=== PATIENT | female | born 1980 | race African-American/Black ===

== ENCOUNTER 2020-03-18 07:30 | Inpatient (IN) | payer OTHER ==
--- NOTE | 2020-03-18 08:14 | HP ---
Past Medical History - Primary Care Physician PCP:: Lee Ann Arellano - Admission Chief Complaint: 39 yrs , 40 .6 wks by dates & 40 wks by us admitted for induction of labor as per recommendations by MFM History of Present Illness: pnc at [address] [place] [address] panel 08/08/19 : gc/ct neg, O Pos, Hbsag neg, hep c nr, rubella immune varicella immune, sickle neg , hiv neg m varicellapos 05/23/19 quantifron neg 12/12/19 : 1 hr Gtt 85, hiv nr, hep c nr m Tpallidum ab neg . 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's, CVA, Dementia, Migraine, Multiple Sclerosis, Peripheral Neuropathy, Parkinson's, Seizure, Syncope, TIA, Vertigo, Other Cardiovascular: No: AFIB, Aneurysm, Aortic Insufficiency, Aortic Stenosis, CAD, CHF, Deep Vein Thrombosis, HTN, Hyperlipdemia, CO, Mitral Insufficiency, Mitral Stenosis, Murmur, Pulmonary Hypertension, Other Pulmonary: No: Asthma, Bronchitis, Cancer, COPD, O2 Dependent, Pneumonia, Previously Intubated, Pulmonary Embolus, Pulmonary Fibrosis, Sleep Apnea, Other Gastrointestinal: No: Ascites, Cancer, Constipation, Crohn's Disease, Diverticulitis, Diverticulosis, Esophageal Varices, Gastritis, GERD, GI Bleed, Hemorrhoids, Hiatal Hernia, Inflamatory Bowel Disease, Irritable Bowel Disease, Pancreatitis, Peptic Ulcer Disease, Ulcerative Colitis, Other Hepatobiliary: No: Hepatitis B, Hepatitis C Renal/: No: UTI Reproductive: Yes: Other (h/o fibroids pap in 2018 normal as per pt) ...: 1 ...Para: 0 ...LMP: 06/06/19 ... Weeks Gestation by Dates: 40.6 ...EDC by Dates: 03/12/20 ...EDC by Sono: 03/18/20 (40 wks by us ) Heme/Onc: Yes: Anemia (rx po iron & pnv) Infectious Disease: No: AIDS, C-Diff, Herpes Zoster, HIV, MRSA, STD's, Tuberculosis, VREF, Other Psych: No: Addictions, Anxiety, Bipolar, Depression, Panic, Psychosis, Schizophrenia, Other Endocrine: No: [place]'s Disease, Jack's Disease, Diabetes Insipidus, Diabetes Mellitus, Hyperparathyroidism, Hyperthyroidism, Hypothyroidism, Osteopenia, SIADH, Other - Past Surgical History Past Surgical History: Yes: None Hx Myomectomy: No Hx Transabdominal Cerclage: No - Smoking History Have you smoked in the past 12 months: No - Alcohol/Substance Use Hx Alcohol Use: No History of Substance Use: reports: None Home Medications - Allergies Allergies/Adverse Reactions: Allergies Allergy/AdvReac Type Severity Reaction Status Date / Time No Known Allergies Allergy Verified 03/18/20 08:07 - Home Medications Home Medications: Ambulatory Orders Ferrous Sulfate [Iron] 1 tab PO DAILY 03/18/20 Vitamins (Sjr) - 1 tab PO DAILY 03/18/20 Review of Systems - Review of Systems Constitutional: reports: No Symptoms Eyes: reports: No Symptoms HENT: reports: No Symptoms Neck: reports: No Symptoms Cardiovascular: reports: No Symptoms Respiratory: reports: No Symptoms Gastrointestinal: reports: No Symptoms Genitourinary: reports: No Symptoms Breasts: reports: No Symptoms Reported Musculoskeletal: reports: No Symptoms Integumentary: reports: No Symptoms Neurological: reports: No Symptoms Endocrine: reports: No Symptoms Psychiatric: reports: No Symptoms Physical Exam - Maternity Vital Signs: Selected Entries 03/18/20 09:30 Temperature 97.8 F Pulse Rate 107 H Blood Pressure 135/80 Weight 210 lb Constitutional: Yes: Well Nourished, Obese Eyes: Yes: WNL HENT: Yes: WNL Neck: Yes: WNL Cardiovascular: Yes: WNL Lungs: Clear to auscultation Breast(s): Yes: WNL - Abdominal Exam/OB Fundal Height: 38 Number of Fetuses: Single Presentation: Vertex Contractions: No Monitor Mode: External Heart Rate (range): 145 Heart Rate Location: [facility] Category: I Accelerations: Uniform Decelerations: None - Vaginal Exam/OB Vaginal Bleeding: No Speculum Exam: No Dilatation (cm): FT Effacement (%): 50 Amniotic Membrane Status: Intact Presentation: Vertex/Position Station: -3 - Physical Exam Musculoskeletal: Yes: WNL Extremities: Yes: WNL. No: Calf Tenderness Edema: LLE: Trace, RLE: Trace Integumentary: Yes: WNL. No: Incision Deep Tendon Reflex Grade: Normal +2 ...Motor Strength: WNL Psychiatric: Yes: WNL - Labs Lab Results: Laboratory Tests 03/15/20 03/18/20 03/18/20 13:40 09:55 09:55 WBC 6.5 Hgb 11.5 Hct 35.6 Plt Count 161 Neutrophils % 63.7 Lymphocytes % 25.9 Monocytes % 9.7 Eosinophils % 0.4 PT with INR 11.00 INR 0.93 PTT (Actin FS) 25.8 Sodium Potassium Chloride Carbon Dioxide BUN Creatinine Random Glucose Syphilis Serology COVID-19 (ESSENCE) Not detected Blood Type Antibody Screen 03/18/20 03/18/20 03/18/20 09:55 09:55 09:55 WBC Hgb Hct Plt Count Neutrophils % Lymphocytes % Monocytes % Eosinophils % PT with INR INR PTT (Actin FS) Sodium 136 Potassium 4.4 Chloride 106 Carbon Dioxide 25 BUN 13.4 Creatinine 0.8 Random Glucose 78 Syphilis Serology Non-reactive COVID-19 (ESSENCE) Blood Type O POSITIVE Antibody Screen Negative Problem List - Problems (1) 40 weeks gestation of Code(s): Z3A.40 - 40 WEEKS GESTATION OF (2) Elective induction of labor planned Code(s): GSE1798 - (3) Positive GBS test Code(s): B95.1 - STREPTOCOCCUS, GROUP B, CAUSING DISEASES CLASSD ELSWHR (4) AMA (advanced maternal age) primigravida 35+ Code(s): O09.519 - SUPERVISION OF ELDERLY PRIMIGRAVIDA, UNSPECIFIED TRIMESTER Qualifiers: Trimester: third trimester Qualified Code(s): O09.513 - Supervision of elderly primigravida, third trimester Assessment/Plan 39 yrs 40 wks by sono 40.6 wks by dateds , GBS pos plan cervidil induction of labor gbs prpphylaxis with ampicillin . stadol + phenrgan labor analgesia & or epidural vag del trial
[2020-03-18] MEDS ORDERED: PROMETHAZINE HCL 25 MG/1 ML VIAL IVPB ONE (08:21)
[2020-03-18] MEDS ORDERED: BUTORPHANOL TARTRATE 1 MG/ML VIAL IVPB ONE (08:21)
[2020-03-18] MEDS ORDERED: DINOPROSTONE 10 MG VAGINAL SUPPOSITORY VG ONE (08:23)
[2020-03-18] MEDS ORDERED: SODIUM PHOSPHATE/NA BIPHOS 133 ML ENEMA PR ONE (08:23)
[2020-03-18] MEDS ORDERED: AMPICILLIN - 2 GM in SODIUM CHLORIDE 100 ML IVPB ONE (08:25)
[2020-03-18 09:39] VITALS: BMI 38.4
[2020-03-18 11:01] LABS: BASO % 0.3 % (0-2.0); EOS % 0.4 % (0-4.5); HEMATOCRIT 35.6 % (32.4-45.2); HEMOGLOBIN 11.5 GM/dL (10.7-15.3); LYMPH % 25.9 % (8-40); MCH 24.4 pg (25.7-33.7); MCHC 32.2 g/dl (32.0-36.0); MEAN CELL VOLUME 75.8 fl (80-96); MEAN PLT VOLUME 9.6 fl (7.5-11.1); MONO % 9.7 % (3.8-10.2); NEUT % 63.7 % (42.8-82.8); PLATELET COUNT 161 K/MM3 (134-434); RDW 17.7 % (11.6-15.6); WHITE BLOOD COUNT 6.5 K/mm3 (4.0-10.0)
[2020-03-18 11:22] LABS: BLOOD UREA NITROGEN 13.4 mg/dL (7-18); CREATININE 0.8 mg/dL (0.55-1.3); POTASSIUM 4.4 mmol/L (3.5-5.1)
[2020-03-18 11:36] LABS: INR 0.93 (0.83-1.09)
[2020-03-18 11:39] LABS: ACTIVATED PTT 25.8 SECONDS (25.2-36.5)
[2020-03-18] MEDS ORDERED: AMPICILLIN - 1 GM in SODIUM CHLORIDE 100 ML IVPB SCH (12:25)
[2020-03-18] MEDS: DEXTROSE 5%-LACTATED RINGERS 1,000 ML IV SCH (16:05)
--- NOTE | 2020-03-18 20:49 | PN ---
Progress Note (short form) - Note Progress Note: 8.30 PM cervidil removed fhr 150 bpm cat-1 no uc noted pt does not feel any cramping v/s stable pelvic exam : cx post ,int os FT, , 50 % , vx -3 . previous montoring strip reviewed , 25 mcg q 4hr x 4doses Selected Entries 03/18/20 16:00 Temperature 97.9 F Pulse Rate 76 Blood Pressure 126/73 Plan discuss options of cytotec or repeat cervidil pt will take shower Po cytotec protocol gbs protocol when UC are regular Problem List - Problems (1) 40 weeks gestation of Code(s): Z3A.40 - 40 WEEKS GESTATION OF (2) Elective induction of labor planned Code(s): [id number] - (3) Positive GBS test Code(s): B95.1 - STREPTOCOCCUS, GROUP B, CAUSING DISEASES CLASSD ELSWHR
[2020-03-18] MEDS: MISOPROSTOL 25 MCG TABLET (COMPOUNDED BY PHARMACY) PO SCH (23:00)
[2020-03-19] MEDS: MISOPROSTOL 25 MCG TABLET (COMPOUNDED BY PHARMACY) PO SCH ×3 (03:15→14:44)
[2020-03-19] MEDS ORDERED: AMPICILLIN SODIUM 2 GM VIAL ONE (06:45)
--- NOTE | 2020-03-19 07:18 | PN ---
Progress Note (short form) - Note Progress Note: cx int os ft/post cx/soft/ext os 2cm/vx-3 UC 5-7 min irregular, mild FHr 130 cat-1 pt got 3rd dose of Cytotec at 7.00AM Selected Entries 03/19/20 06:00 Temperature 98.7 F Pulse Rate 54 L Blood Pressure 134/69 pt is given option of delivery by primary c/section since not much change in cx is noted . plan : she prefers to complete 4 doses of cytotec, & continue trial of vag del Iv Ampiciilin 1st dose started at 7.00AM. po clear liqiuds only Problem List - Problems (1) 40 weeks gestation of Code(s): Z3A.40 - 40 WEEKS GESTATION OF (2) Elective induction of labor planned Code(s): [id number] - (3) Positive GBS test Code(s): B95.1 - STREPTOCOCCUS, GROUP B, CAUSING DISEASES CLASSD ELSWHR (4) AMA (advanced maternal age) primigravida 35+ Code(s): O09.519 - SUPERVISION OF ELDERLY PRIMIGRAVIDA, UNSPECIFIED TRIMESTER Qualifiers: Trimester: third trimester Qualified Code(s): O09.513 - Supervision of elderly primigravida, third trimester
[2020-03-19] MEDS: DEXTROSE 5%-LACTATED RINGERS 1,000 ML IV SCH ×2 (07:54→17:22)
[2020-03-19] MEDS ORDERED: AMPICILLIN SODIUM 1 GM VIAL ONE ×3 (10:39→17:23)
[2020-03-19] MEDS ORDERED: SODIUM CHLORIDE 100 ML IVPB ONE ×3 (10:39→17:23)
[2020-03-19] MEDS: AMPICILLIN - 1 GM in SODIUM CHLORIDE 100 ML IVPB SCH ×3 (10:45→18:41)
[2020-03-19] MEDS ORDERED: DINOPROSTONE 10 MG VAGINAL SUPPOSITORY VG ONE (11:48)
--- NOTE | 2020-03-19 12:10 | PN ---
Ante-Partal Exam - Subjective Subjective: Patient counseled at bedside regarding IOL and IUGR, including theirs respective risks and complications. All Questions answered. Vital Signs: Vital Signs Temperature 98.6 F 03/19/20 11:00 Pulse Rate 77 03/19/20 11:00 Respiratory Rate 18 03/19/20 11:00 Blood Pressure 112/59 L 03/19/20 11:00 O2 Sat by Pulse Oximetry (%) Bleeding: No Headache: No Visual changes: No Right upper quadrant pain: No - Contractions Contractions: Yes Regularity: Irregular Intensity: Unaware Monitor Mode: External - Exam during Labor Heart Rate: 140 Variability: Moderate Category: I Monitor Accelerations: Present Monitor Decelerations: None Exam: Vaginal Dilatation (cm): 1 Effacement (%): 40 Amniotic Membrane Status: Intact Presentation: Vertex (by comfort's) Station: -3 - Assessment/Plan Assessment/Plan: 39 y/o P0 @ 40.0wks, IOL for possible IUGR, FHT is reactive, stable maternal condition. One episode of mildly elevated BPs due to emotional discomfort as per patient, BPs in normal range since. Patient motivated for trial of labor and in agreement to continue IOL. -Regular diet -Cervidil placement to continue induction -Continuous monitoring -Consider PEC labs if elevated BPs reoccur
--- NOTE | 2020-03-19 13:38 | PN ---
Progress Note (short form) - Note Progress Note: cervidil placed in vaginal vault
[2020-03-20] MEDS ORDERED: PCA PUMP NR ONE ×2 (00:43→08:34)
[2020-03-20] MEDS ORDERED: AMPICILLIN SODIUM 1 GM VIAL ONE ×3 (00:44→10:01)
[2020-03-20] MEDS ORDERED: FENTANYL/BUPIVACAINE/NS/PF - PCEA - 50 ML DISP.SYRIN EP ONE ×3 (00:44→08:35)
[2020-03-20] MEDS ORDERED: OXYTOCIN 20 UNITS in 0.9% NS 20 UNIT/1,000 ML INFUS.BAG IV ONE (00:44)
[2020-03-20] MEDS ORDERED: SODIUM CHLORIDE 100 ML IVPB ONE ×2 (00:44→05:07)
[2020-03-20] MEDS ORDERED: LIDOCAINE HCL 1% PRESERVATIVE FREE - 30ML VIAL ONE (00:44)
[2020-03-20] MEDS ORDERED: BUPIVACAINE HCL/PF 0.25% (2.5MG/ML) 10 ML VIAL ONE (01:03)
[2020-03-20] MEDS: AMPICILLIN - 1 GM in SODIUM CHLORIDE 100 ML IVPB SCH ×3 (01:04→10:00)
[2020-03-20] MEDS ORDERED: NALOXONE HCL 0.4 MG/ML VIAL IVPUSH PRN (01:25)
[2020-03-20] MEDS: FENTANYL/BUPIVACAINE/NS/PF - PCEA - 50 ML DISP.SYRIN EP SCH (01:25)
[2020-03-20] MEDS ORDERED: OXYTOCIN 30 UNITS in 0.9% NS 30 UNIT/500 ML INFUS.BAG IVPB ONE (09:51)
[2020-03-20] MEDS ORDERED: MISOPROSTOL 200 MCG TABLET ONE (11:05)
--- NOTE | 2020-03-20 12:41 | PN ---
Progress Note (short form) - Note Progress Note: 7.40 AM : I took over management of labor from Dr Vargas. 03/18/20 pt had received cervidil followed by cytotecx3 doses followed by 2nd cervidil on 03/19/20 . 03/19/20 10.00 PM : pt started feeling UC 03/20/20 : 1.00AM epidural labor analgesia 5.50 AM SROM clear 7.40 AM 9cm/ 100/vx 0 / UC 2-4 min mild , fhr 140- 145 cat-1 8.50 AM RIM/ +1/ UC 2-4, , FHR 140 cat -1 9.40AM post lip / +2, caput UC 2-5 min, fhr 140 cat-1 10.00 AM Pitocin Augmentation 11.00 AM fully dilated ,+2/+3 ,caput fhr 135-140 , with pushes fhr down to 110 bpm , pt encouraged to push 11.30 AM mckeon taken out --400 ml urine out put . Selected Entries 03/20/20 03/20/20 03/20/20 07:00 08:00 09:00 Temperature 97.9 F 98.3 F 98.2 F BP were noted high in the range of 150-160 / 82 -92 , specially when pt anxious . Problem List - Problems (1) 40 weeks gestation of Code(s): Z3A.40 - 40 WEEKS GESTATION OF (2) Elective induction of labor planned Code(s): [id number] - (3) Positive GBS test Code(s): B95.1 - STREPTOCOCCUS, GROUP B, CAUSING DISEASES CLASSD ELSR (4) AMA (advanced maternal age) primigravida 35+ Code(s): O09.519 - SUPERVISION OF ELDERLY PRIMIGRAVIDA, UNSPECIFIED TRIMESTER Qualifiers: Trimester: third trimester Qualified Code(s): O09.513 - Supervision of elderly primigravida, third trimester
--- NOTE | 2020-03-20 12:58 | PN ---
Delivery - Delivery Vaginal Delivery: No Problems, Spontaneous (pt deievered vx, pa position, cord around neckx2 , released before delivery of shoulder , shoulders delievered without difficulty . Trivacular cord, cord segment for cord gas cut, cord blood collected .Placenta removed completely with membranes. median epi sutured in layers with chr catgut #2/0 under LA ..OH ex sphincter & mucosa intact hemorrhoids noted .) Type of Anesthesia: Local, Epidural Episiotomy/Laceration: Midline EBL (cc): 400 Delivery, Single - Stages of Labor Date 1st Stage Initiatied: 03/19/20 Time 1st Stage Initiated: 22:00 Date 2nd Stage Initiated: 03/20/20 Time 2nd Stage Initiated: 11:00 Date of Delivery: 03/20/20 Time of Delivery: 11:45 Date Placenta Delivered: 03/20/20 Time Placenta Delivered: 11:50 Placenta: Yes: Spontaneous, Uterine Exploration - Condition of Skewer Up/Senior Accounting Manager Present: Yes Name: Maryam Jacinto Infant Gender: Male Weight: 6 lb 4 oz Position: Right, OA (cord around neck x2) Total Hours ROM (Hrs/Mins): [id number] - 1 Minute Total Score: 9 5 Minutes Total Score: 9 - Feeding Plan Initial Plan: Exclusive throughout hospitalization Remarks - Remarks Remarks: 39 yrs , 40 wks , admitted on 03/18/20 . PNC at [address] [place] [address] Induction of labor started on 03/18/20 with cervidil followed by cytotec x3 dodes , followed by 2nd cervidil on 03/19/20 GBS pos , she received 7 doses of Ampicilin Prolonged latent phase of labor Intrapartum course uneventful except elevated BP readings periodically. Pp bP 143/74 Pulse 67/min
[2020-03-20] MEDS ORDERED: BENZOCAINE 20% 57 GM BOTTLE TP PRN (13:03)
[2020-03-20] MEDS ORDERED: METHYLERGONOVINE MALEATE 0.2 MG/1 ML AMP IM PRN (13:03)
[2020-03-20] MEDS ORDERED: WITCH HAZEL 50% (TUCKS) 40 PAD/JAR PAD TP PRN (13:03)
[2020-03-20] MEDS ORDERED: oxyCODONE HCL 5 MG TABLET PO PRN (13:03)
[2020-03-20] MEDS ORDERED: BENZOCAINE 28 GM HEMORRHOIDAL OINTMENT TP PRN (13:03)
[2020-03-20] MEDS ORDERED: BISACODYL 10 MG SUPP.RECT RC PRN (13:03)
[2020-03-20 13:05] LABS: CORD BASE EXCESS -6.9 mmol/L (0-2); CORD HCO3 19.1 mmHg (20-29); CORD pH 7.297 (7.14-7.44)
[2020-03-20] MEDS ORDERED: OXYTOCIN 20 UNITS in 0.9% NS 20 UNIT/1,000 ML INFUS.BAG IV SCH (13:15)
[2020-03-20] MEDS: DEXTROSE 5%-LACTATED RINGERS 1,000 ML IV SCH (13:37)
[2020-03-20] MEDS: FERROUS SO4 325 MG TABLET (FP) PO SCH (18:35)
[2020-03-20] MEDS: IBUPROFEN 600 MG TABLET (FP) PO PRN (20:25)
[2020-03-20] MEDS: ACETAMINOPHEN 325 MG TABLET (FP) PO PRN (20:26)
[2020-03-21 08:18] LABS: BASO % 0.3 % (0-2.0); EOS % 0.3 % (0-4.5); HEMATOCRIT 27.4 % (32.4-45.2); HEMOGLOBIN 8.9 GM/dL (10.7-15.3); LYMPH % 14.4 % (8-40); MCH 24.4 pg (25.7-33.7); MCHC 32.6 g/dl (32.0-36.0); MEAN PLT VOLUME 9.8 fl (7.5-11.1); MONO % 8.1 % (3.8-10.2); NEUT % 76.9 % (42.8-82.8); PLATELET COUNT 135 K/MM3 (134-434); RBC 3.66 M/mm3 (3.60-5.2); RDW 17.8 % (11.6-15.6); WHITE BLOOD COUNT 11.3 K/mm3 (4.0-10.0)
--- NOTE | 2020-03-21 08:46 | PN ---
Progress Note (short form) - Note Progress Note: ppd1 s/p , anemia CBC, BMP 03/21/20 07:46 03/18/20 09:55 Last Vital Signs Temp Pulse Resp BP Pulse Ox 98.1 F 75 18 123/74 100 03/21/20 07:00 03/21/20 07:00 03/21/20 07:00 03/21/20 07:00 03/21/20 07:00 doing well, no excess vaginal bleeding , no dizzinessa abdomen soft, uterus firm lochia mild no calf tenderness plan ambulate iron , vit
[2020-03-21] MEDS: FERROUS SO4 325 MG TABLET (FP) PO SCH ×2 (09:07→17:40)
[2020-03-21] MEDS: PRENATAL VITAMINS W/ FOLIC ACID TABLET (FP) PO SCH (09:07)
[2020-03-21] MEDS ORDERED: SENNOSIDES/DOCUSATE COMBO (SENNA PLUS) TABLET (UD) PO PRN (22:00)
[2020-03-21] MEDS: ACETAMINOPHEN 325 MG TABLET (FP) PO PRN (22:05)
[2020-03-21] MEDS: IBUPROFEN 600 MG TABLET (FP) PO PRN (22:06)
[2020-03-22] MEDS: FENTANYL/BUPIVACAINE/NS/PF - PCEA - 50 ML DISP.SYRIN EP SCH (07:30)
[2020-03-22 08:55] VITALS: TEMP 98.7
[2020-03-22] MEDS: FERROUS SO4 325 MG TABLET (FP) PO SCH (09:07)
[2020-03-22] MEDS: PRENATAL VITAMINS W/ FOLIC ACID TABLET (FP) PO SCH (09:07)
[2020-03-22 09:41] VITALS: BP 134/86; PULSE 76
--- NOTE | 2020-03-22 11:29 | DS ---
Physical Exam-[employer] Vital Signs: Vital Signs Temperature 98.7 F 03/22/20 08:53 Pulse Rate 76 03/22/20 08:53 Respiratory Rate 19 03/22/20 08:53 Blood Pressure 134/86 03/22/20 08:53 O2 Sat by Pulse Oximetry (%) 100 03/22/20 08:53 Constitutional: Yes: Well Nourished, No Distress, Calm Eyes: Yes: WNL, Conjunctiva Clear, EOM Intact HENT: Yes: WNL, Atraumatic, Normocephalic Neck: Yes: WNL, Supple, Trachea Midline Cardiovascular: Yes: WNL, Regular Rate and Rhythm Respiratory: Yes: WNL, Regular, CTA Bilaterally Gastrointestinal: Yes: WNL ...Rectal Exam: Yes: WNL Renal/: Yes: WNL ....Post : Yes: Uterus firm, Uterus non-tender, Slight lochia rubra Breast(s): Yes: WNL Musculoskeletal: Yes: WNL Extremities: Yes: WNL Edema: No Integumentary: Yes: WNL Neurological: Yes: WNL, Alert, Oriented ...Motor Strength: WNL Psychiatric: Yes: WNL, Alert, Oriented Labs: CBC, BMP 03/21/20 07:46 03/18/20 09:55 Delivery - Delivery Vaginal Delivery: No Problems, Spontaneous (pt deievered vx, pa position, cord around neckx2 , released before delivery of shoulder , shoulders delievered without difficulty . Trivacular cord, cord segment for cord gas cut, cord blood collected .Placenta removed completely with membranes. median epi sutured in layers with chr catgut #2/0 under LA ..RI ex sphincter & mucosa intact hemorrhoids noted .) Type of Anesthesia: Local, Epidural Episiotomy/Laceration: Midline EBL (cc): 400 Delivery, Single - Stages of Labor Date 1st Stage Initiatied: 03/19/20 Time 1st Stage Initiated: 22:00 Date 2nd Stage Initiated: 03/20/20 Time 2nd Stage Initiated: 11:00 Date of Delivery: 03/20/20 Time of Delivery: 11:45 Time Placenta Delivered: 11:50 Placenta: Yes: Spontaneous, Uterine Exploration - Condition of Vice President Underwriting/Senior Account Representative Present: Yes Name: OrvilleThomasmarva Infant Gender: Male Weight: 6 lb 4 oz Position: Right, OA (cord around neck x2) Total Hours ROM (Hrs/Mins): [id number] - 1 Minute Total Score: 9 5 Minutes Total Score: 9 - [place] Feeding Plan Initial Plan: Exclusive throughout hospitalization Discharge Summary Reason For Visit: INDUCTION OF LABOR Current Active Problems 40 weeks gestation of (Acute) AMA (advanced maternal age) primigravida 35+ (Acute) Elective induction of labor planned (Acute) Normal spontaneous vaginal delivery (Acute) Positive GBS test (Acute) Procedures: Principal: Hospital Course: no complication Plan of Treatment: follow up [facility] care 4 weeks Condition: Stable - Instructions Diet, Activity, Other Instructions: Post Instructions DIET: Continue good diet high in protein, calcium, and iron rich foods. Drink at least eight (8) glasses of water daily in addition to other fluids ct Regular diet MEDICATIONS: Continue vitamins and iron as previously directed. Motrin and Tylenol may be taken for minor discomfort. ACTIVITY: Mild to moderate exercise may be started in two (2) weeks. Take frequent rest periods. Resume normal activity after six (6) week check up. WOUND CARE OF OPERATIVE SITE: Continue use of perineal bottle until vaginal discharge stops. Keep area clean. Shower daily. Keep abdominal wound dry. Report any drainage or redness to physic bianca. Tub baths, tampons and douches are not permitted for 6 weeks. _ct Breast feeding & or Bottle feeding BREAST CARE: (For those that are not ): If engorgement occurs: Wear tight fitting bra. Take Tylenol or Motrin for pain. Apply cold packs (ice in bags to each breast ) FAMILY PLANNING: There are many control alternatives to pursue and they should be discussed at your first office visit. You may resume sexual activity after your six (6) week check up. (Remember, breast feeding is not a contraceptive) NEXT PHYSICIAN APPOINTMENT: Be certain to call for a three (3) week appointment, unless otherwise directed. Call Clinic or got to Emergency Dept if you have any of the following: Heavy vaginal bleeding Painful urination Leg pain Unusual odor noted to vaginal bleeding High fever Red streaking noted on breast Referrals: Lee Ann Arellano MD [Staff Physician] - Disposition: HOME - Home Medications Comprehensive Discharge Medication List: Ambulatory Orders Ferrous Sulfate [Iron] 1 tab PO DAILY 03/18/20 Vitamins (Sjr) - 1 tab PO DAILY 03/18/20 Acetaminophen [Tylenol .Regular Strength -] 650 mg PO Q3H PRN #0 tablet 03/20/20 Benzocaine [Americaine 20% [place] -] 1 spray TP PRN PRN bottle 03/20/20 Ferrous Sulfate [Feosol] 325 mg PO BIDWM ud 03/20/20 Ibuprofen [Motrin -] 600 mg PO Q4H PRN #30 tablet 03/20/20 Vitamins (Sjr) - 1 tab PO DAILY tablet 03/20/20 Sennosides/Docusate Sodium [Pericolace -] 2 tablet PO HS PRN #30 tablet 03/20/20 Witch Billie 50% (Tucks) [Tucks Pads -] 1 pad TP PRN PRN pad 03/20/20
== END 2020-03-22 14:50 | disposition home or self-care (01) | DRG 807 ==
LOC: JLDR 07:30 → J3W 03-20 14:45
PROVIDERS: ADMIT Obstetrics & Gynecology; ATTEND Obstetrics & Gynecology
PROC: 3E0P7VZ Introduction of Hormone into Female Reproductive, Via Natural or Artificial Opening (ICD-10-PCS; 2020-03-18)
PROC: 10E0XZZ Delivery of Products of Conception, External Approach (ICD-10-PCS; principal; 2020-03-20)
PROC: 0W8NXZZ Division of Female Perineum, External Approach (ICD-10-PCS; 2020-03-20)
DX: O48.0 Post-term pregnancy (principal); Z37.0 Single live birth; O63.0 Prolonged first stage (of labor); O99.824 Streptococcus B carrier state complicating childbirth; Z3A.40 40 weeks gestation of pregnancy; O42.12 Full-term premature rupture of membranes, onset of labor more than 24 hours following rupture; O69.81X0 Labor and delivery complicated by cord around neck, without compression, not applicable or unspecified; O34.13 Maternal care for benign tumor of corpus uteri, third trimester; D25.9 Leiomyoma of uterus, unspecified; O90.81 Anemia of the puerperium
CPT/HCPCS: 36415; 36600; 59409; 80048; 82803; 85025; 85610; 85730; 86780; 86850; 86900; 86901